=== PATIENT | female | born 2005 | race African-American/Black ===

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

== ENCOUNTER 2024-09-23 14:25 | Outpatient (CLI) | payer OTHER | END 2024-09-23 14:26 | disposition home or self-care (01) | LOC: BICULT 14:25 | PROVIDERS: ATTEND Family Medicine | DX: Z34.82 Encounter for supervision of other normal pregnancy, second trimester (principal); Z3A.22 22 weeks gestation of pregnancy | CPT/HCPCS: 76805 ==

== ENCOUNTER 2025-09-29 15:39 | Outpatient (CLI) | payer OTHER | END 2025-09-29 15:40 | disposition home or self-care (01) | LOC: ULT 15:39 | PROVIDERS: ATTEND Nurse Practitioner | DX: O09.33 Supervision of pregnancy with insufficient antenatal care, third trimester (principal); O09.893 Supervision of other high risk pregnancies, third trimester; Z98.891 History of uterine scar from previous surgery; Z3A.31 31 weeks gestation of pregnancy | CPT/HCPCS: 76805 ==